=== PATIENT | male | born 2000 | race Caucasian/White ===

== ENCOUNTER 2023-01-21 22:38 | Emergency (ER) | payer SELFPAY ==
[2023-01-21 22:54] VITALS: BP 116/71; PULSE 72; RESP 18; TEMP 97.9; BMI 36.4
[2023-01-22] MEDS ORDERED: ACETAMINOPHEN 500 MG TABLET (FP) PO ONE (00:52)
[2023-01-22] MEDS ORDERED: ACETAMINOPHEN 325 MG TABLET (FP) ONE (01:07)
[2023-01-22 01:31] LABS: BASO % 0.5 % (0-2.0); EOS % 2.9 % (0-4.5); HEMATOCRIT 41.2 % (35.4-49); HEMOGLOBIN 14.2 GM/dL (11.7-16.9); LYMPH % 35.5 % (8-40); MCH 29.5 pg (25.7-33.7); MCHC 34.4 g/dl (32.0-35.9); MEAN CELL VOLUME 85.7 fl (80-96); MONO % 9.5 % (3.8-10.2); NEUT % 51.6 % (42.8-82.8); PLATELET COUNT 207 10^3/uL (134-434); RDW 13.3 % (11.9-15.9); WHITE BLOOD COUNT 8.8 K/mm3 (4.0-10.0)
[2023-01-22 01:36] LABS: INR 1.12 (0.83-1.09)
[2023-01-22 01:38] LABS: ACTIVATED PTT 38.4 SECONDS (25.2-36.5)
[2023-01-22 01:53] LABS: POTASSIUM 4.1 mmol/L (3.5-5.1)
[2023-01-22 01:55] LABS: ALBUMIN 3.7 g/dl (3.4-5.0); BLOOD UREA NITROGEN 11.1 mg/dL (7-18); CALCIUM 8.4 mg/dL (8.5-10.1)
[2023-01-22 02:00] LABS: BILIRUBIN,TOTAL 0.3 mg/dL (0.2-1); TOT PROT 6.9 g/dl (6.4-8.2)
[2023-01-22 02:09] LABS: MAGNESIUM 1.7 mg/dL (1.8-2.4)
== END 2023-01-22 03:14 | disposition home or self-care (01) ==
LOC: JER 22:38
DX: R07.9 Chest pain, unspecified (principal); Z20.822 Contact with and (suspected) exposure to COVID-19
CPT/HCPCS: 0241U-QW; 36415; 71046-TC-FY; 80053; 83735; 84484; 85025; 85610; 85730; 93005; 93010; 99285-25